=== PATIENT | female | born 1975 | race African-American/Black ===

== ENCOUNTER 2022-04-03 11:54 | Observation (INO) | payer BC ==
[2022-03-31 17:05] LABS: BASOPHILS % 0.4 % (0.0-1.0); EOSINOPHILS # (AUTO) 0.1 (0.0-0.4); HEMATOCRIT 41.2 % (34.2-44.1); HEMOGLOBIN 12.8 g/dL (12.0-16.0); LYMPHOCYTES % 26.5 % (18.0-39.1); MEAN CORPUSCULAR HEMOGLOBIN 29.3 pg (28-32); MEAN CORPUSCULAR HGB CONC 31.1 g/dL (31-35); MEAN CORPUSCULAR VOLUME 94.3 fL (81-99); MONOCYTES # (AUTO) 0.4 (0.2-0.8); MONOCYTES % 5.6 % (4.4-11.3); NEUTROPHILS # (AUTO) 4.9 (2.1-6.9); NEUTROPHILS % 66.2 % (38.7-80.0); PLATELET COUNT 292 x10e3/uL (140-360); RED BLOOD COUNT 4.37 x10e6/uL (3.6-5.1); RED CELL DISTRIBUTION WIDTH 12.7 % (11.7-14.4)
[2022-03-31 17:09] LABS: CLARITY,URINE CLEAR (CLEAR); COLOR,URINE YELLOW (YELLOW); KETONES,URINE TRACE (NEGATIVE); LEUKOCYTE ESTERASE ,URINE NEGATIVE (NEGATIVE); NITRITE,URINE NEGATIVE (NEGATIVE); PROTEIN,URINE DIPSTICK NEGATIVE (NEGATIVE); URINE UROBILINOGEN 1 mg/dL (0.2 - 1)
[2022-03-31 17:45] LABS: ANION GAP 10.1 mmol/L (8-16); BLOOD UREA NITROGEN 8 mg/dL (7-26); BUN/CREATININE RATIO 11 (6-25); CALCIUM 8.8 mg/dL (8.4-10.2); CARBON DIOXIDE 26 mmol/L (22-29); CHLORIDE 105 mmol/L (98-107); CREATININE, SERUM 0.74 mg/dL (0.57-1.11); GLUCOSE 66 mg/dL (74-118); POTASSIUM 4.1 mmol/L (3.5-5.1); SODIUM 137 mmol/L (136-145)
[~2022-04-03] VITALS: Ht 170.2 cm; Wt 93.0 kg
[~2022-04-03 11:54] MED LIST: B COMPLEX1 EACH PO; MULTIVITAMIN1 EACH PO
[2022-04-03] MEDS ORDERED: LIDOCAINE 2%/ EPINEPHRINE 20ML MDV ONE (13:32)
[2022-04-03] MEDS ORDERED: BUPIVACAINE HCL 0.5% INJ 30 ML VIAL INJ ONE (13:32)
[2022-04-03] MEDS ORDERED: KETOROLAC TROMETHAMINE 30 MG/ML VIAL ONE (14:37)
[2022-04-03] MEDS ORDERED: GLYCOPYRROLATE INJ 0.2 MG/ML VIAL ONE (14:37)
[2022-04-03] MEDS ORDERED: NEOSTIGMINE 1 MG/ML 10ML VIAL ONE (14:37)
[2022-04-03] MEDS ORDERED: ONDANSETRON HCL INJ 2MG/ML 2ML 2 MG/ML VIAL ONE (14:37)
[2022-04-03] MEDS ORDERED: PROPOFOL IV EMULSION 10 MG/ML 20 ML VIAL ONE (14:37)
[2022-04-03] MEDS ORDERED: METOCLOPRAMIDE HCL 10 MG/2ML VIAL ONE (14:37)
[2022-04-03] MEDS ORDERED: LIDOCAINE HCL 2% LOCAL INJ 5 ML SDV VIAL INJ ONE (14:37)
[2022-04-03] MEDS ORDERED: DEXAMETHASONE SOD PHOS INJ 4 MG/ML SDV ONE (14:37)
[2022-04-03] MEDS ORDERED: ROCURONIUM BROMIDE 10 MG/ML 5ML VIAL IV ONE (14:37)
[2022-04-03] MEDS ORDERED: DIPHENHYDRAMINE HCL 25 MG CAP PO PRN (17:30)
[2022-04-03] MEDS ORDERED: ONDANSETRON HCL INJ 2MG/ML 2ML 2 MG/ML VIAL IV PRN (17:30)
[2022-04-03] MEDS ORDERED: ACETAMINOPHEN 325 MG TAB PO PRN (17:30)
[2022-04-03] MEDS ORDERED: SIMETHICONE 80 MG CHEW PO PRN (17:30)
[2022-04-03] MEDS ORDERED: DOCUSATE SODIUM 100 MG CAP PO PRN (17:30)
[2022-04-03] MEDS ORDERED: BISACODYL 10 MG SUPP PR PRN (17:30)
[2022-04-03] MEDS: Morphine 4mg INJECTION 4 MG/ML INJ IV PRN (17:48)
[2022-04-03] MEDS: KETOROLAC TROMETHAMINE 30 MG/ML VIAL IV SCH (18:37)
[2022-04-03 18:43] VITALS: BP 118/72
[2022-04-03 20:00] VITALS: BP 118/72
[2022-04-04] MEDS: Morphine 4mg INJECTION 4 MG/ML INJ IV PRN (01:30)
[2022-04-04] MEDS: D5.45%NS/KCL 20MEQ 1,000 ML IV SCH ×3 (02:45→10:45)
[2022-04-04 05:37] LABS: BASOPHILS % 0.2 % (0.0-1.0); HEMOGLOBIN 11.3 g/dL (12.0-16.0); LYMPHOCYTES # (AUTO) 0.8 (1.0-3.2); LYMPHOCYTES % 7.7 % (18.0-39.1); MEAN CORPUSCULAR HEMOGLOBIN 29.1 pg (28-32); MEAN CORPUSCULAR HGB CONC 33.2 g/dL (31-35); MEAN CORPUSCULAR VOLUME 87.6 fL (81-99); MONOCYTES # (AUTO) 0.4 (0.2-0.8); NEUTROPHILS # (AUTO) 8.5 (2.1-6.9); NEUTROPHILS % 87.7 % (38.7-80.0); PLATELET COUNT 265 x10e3/uL (140-360); RED BLOOD COUNT 3.88 x10e6/uL (3.6-5.1); RED CELL DISTRIBUTION WIDTH 13.1 % (11.7-14.4)
[2022-04-04 05:57] LABS: ANION GAP 13.3 mmol/L (8-16); CALCIUM 8.6 mg/dL (8.4-10.2); CREATININE, SERUM 0.68 mg/dL (0.57-1.11); POTASSIUM 4.3 mmol/L (3.5-5.1)
[2022-04-04] MEDS: KETOROLAC TROMETHAMINE 30 MG/ML VIAL IV SCH ×3 (06:16→12:00)
[2022-04-04] MEDS ORDERED: MOTRIN200 MG PO (07:31)
[2022-04-04 08:51] VITALS: BP 104/63
[2022-04-04 11:10] VITALS: BP 104/63
[2022-04-04 12:31] VITALS: BP 106/72
[2022-04-04 17:39] VITALS: BP 147/66
[2022-04-04 17:43] VITALS: BP 120/79
== END 2022-04-04 18:30 | disposition home or self-care (01) ==
LOC: OR 11:54 → PACU V 15:31 → MED/SURG 18:21
PROVIDERS: ADMIT Obstetrics & Gynecology; ATTEND Obstetrics & Gynecology
DX: N93.9 Abnormal uterine and vaginal bleeding, unspecified (principal); D25.9 Leiomyoma of uterus, unspecified; Z01.812 Encounter for preprocedural laboratory examination; Z20.822 Contact with and (suspected) exposure to COVID-19; K66.0 Peritoneal adhesions (postprocedural) (postinfection); N70.11 Chronic salpingitis
CPT/HCPCS: 0223U; 36415 ×2; 49329; 58573; 80048 ×2; 81003; 84702; 85025 ×2; 86850; 86900; 88307; 88342; 94799 ×2; C1713; G0378 ×2; J0690 ×2; J1100; J1885 ×2; J2001 ×2; J2270; J2405; J2704; J2710; J2765; J7050 ×2